=== PATIENT | male | born 1970 | race Caucasian/White ===

== ENCOUNTER 2017-03-25 16:36 | Emergency (ER) | payer SELFPAY ==
[2017-03-25 16:43] VITALS: BP 139/96; PULSE 95; RESP 18; TEMP 98.4; O2SAT 96
[2017-03-25] MEDS ORDERED: AMLO5 PO (17:23)
[2017-03-25] MEDS ORDERED: ORPHENADRINE INJ 60 MG/2 ML AMP IM ONE (17:30)
[2017-03-25] MEDS ORDERED: KETOROLAC TROMETHAMINE 60 MG/2 ML (IM) VIAL IM ONE (17:30)
--- NOTE | 2017-03-25 18:08 | PD ---
HPI Chief Complaint: Back/ Neck Pain or Injury Time Seen by Provider: 17:50 Travel History International Travel<30 days: No Contact w/Intl Traveler<30days: No Traveled to known affect area: No History of Present Illness HPI 46-year-old male here with low back pain. Injury occurred when patient bent over in the shower and slightly slipped causing him to twist the back. He had immediate pain in the low lumbar region making it difficult to even stand up. The pain has progressed to the point where he reports he is unable to stand back pain. Patient is visiting from [place]. He denies fever, incontinence, saddle anesthesia, paresthesia or weakness of the extremities. PFSH Past Medical History Narrative Medical Significant for hypertension Cardiovascular Problems: Yes (HTN) Diminished Hearing: No Hypertension: Yes Sleep Apnea: Yes Tetanus Vaccination: < 5 Years Influenza Vaccination: Yes Social History Alcohol Use: Yes (daily) Tobacco Use: Yes (occassional cigar) Substance Use: No Allergies-Medications (Allergen,Severity, Reaction): Coded Allergies: Sulfa (Sulfonamide Antibiotics) (Verified Allergy, Unknown, 03/25/17) Reported Meds & Prescriptions Reported Meds & Active Scripts Active Ultram (Tramadol HCl) 50 Mg Tab 50 Mg PO Q6H PRN Robaxin (Methocarbamol) 500 Mg Tab 500 Mg PO TID Ibuprofen 800 Mg Tab 800 Mg PO Q6HR PRN Reported Norvasc (Amlodipine Besylate) 5 Mg Tab 5 Mg PO DAILY Review of Systems Except as stated in HPI: all other systems reviewed are Neg General / Constitutional: No: Fever Cardiovascular: No: Chest Pain or Discomfort Gastrointestinal: No: Abdominal Pain Neurologic: No: Weakness Physical Exam Narrative GENERAL: Alert male in no distress. Patient grimaces upon moving. SKIN: Warm and dry. HEAD: Normocephalic. EYES: No scleral icterus. No injection or drainage. NECK: Supple, trachea midline. No JVD or lymphadenopathy. CARDIOVASCULAR: Regular rate and rhythm without murmurs, gallops, or rubs. RESPIRATORY: Breath sounds equal bilaterally. No accessory muscle use. GASTROINTESTINAL: Abdomen soft, non-tender, nondistended. MUSCULOSKELETAL: No cyanosis, or edema. BACK: Tenderness to the lumbar spine and lumbar paraspinous musculature. Without obvious deformity. No CVA tenderness. NEUROLOGICAL: Motor and sensory grossly within normal limits. Five out of 5 muscle strength in all muscle groups. Dorsiflex and plantarflex intact. Normal sensation. Normal speech. Data Data Last Documented VS Vital Signs Date Time Temp Pulse Resp B/P (MAP) Pulse Ox O2 Delivery O2 Flow Rate FiO2 03/25/17 19:38 16 03/25/17 16:43 98.4 95 139/96 (110) 96 Orders Orders Ketorolac Inj (Toradol Inj) (03/25/17 17:30) Orphenadrine Inj (Norflex Inj) (03/25/17 17:30) Ct Lumb Spine W/O Contrast (03/25/17 ) Morphine Inj (Morphine Inj) (03/25/17 18:45) Ondansetron Odt (Zofran Odt) (03/25/17 18:45) Morphine Inj (Morphine Inj) (03/25/17 18:45) Ed Discharge Order (03/25/17 20:47) MDM Medical Decision Making Medical Screen Exam Complete: Yes Emergency Medical Condition: Yes Differential Diagnosis Lumbar strain, lumbar spine fracture, herniated disc Narrative Course 46-year-old male here with low lumbar pain after bending over in the shower this evening. He has a normal neurologic exam. CAT scan of lumbar spine ordered. He was given Toradol IM, Norflex IM. On reexam he reports no symptom improvement after medications. He was given one shot of morphine [address] scan show no compression fracture CT lumbar spine: No compression fracture CT results were discussed with patient. He is reporting symptom improvement. He was ambulated by nursing staff. He will be discharged home with NSAIDs, muscle relaxers, pain medication. Diagnosis Primary Impression: Low back pain Qualified Codes: M54.5 - Low back pain Referrals: Primary Care Physician Additional Instructions: Follow-up with her doctor Avoid heavy lifting or strenuous activity. Scripts Tramadol (Ultram) 50 Mg Tab 50 MG PO Q6H Y for PAIN, #10 TAB 0 Refills Prov: Celena Cornejo MD 03/25/17 Methocarbamol (Robaxin) 500 Mg Tab 500 MG PO TID for Muscle Spasm, #12 TAB 0 Refills Prov: Peggy Nino 03/25/17 Ibuprofen (Ibuprofen) 800 Mg Tab 800 MG PO Q6HR Y for PAIN, #40 TAB 0 Refills Prov: Peggy Nino 03/25/17 Disposition: 01 DISCHARGE HOME Condition: Stable Peggy Nino Mar 25, 2017 18:08
[2017-03-25] MEDS ORDERED: MORPHINE SULFATE 4 MG/ML INJ IV ONE (18:45)
[2017-03-25] MEDS ORDERED: MORPHINE SULFATE 4 MG/ML INJ IM ONE (18:45)
[2017-03-25] MEDS ORDERED: ONDANSETRON ODT 4 MG TAB PO ONE (18:45)
--- NOTE | 2017-03-25 19:28 | RADRPT ---
EXAM DATE/TIME: 03/25/2017 18:39 [facility] COMPARISON: No previous studies available for comparison. INDICATIONS : Lower back pain. Unable to get out of bed. Old injury in 2005. RADIATION DOSE: 32.50 CTDIvol (mGy) MEDICAL HISTORY : Hypertension. SURGICAL HISTORY : Bilateral hip repair. ENCOUNTER: Initial ACUITY: 1 day PAIN SCALE: 10/10 LOCATION: spine TECHNIQUE: Volumetric scanning of the lumbar spine was performed. Multiplanar reconstructions in the sagittal, coronal and oblique axial planes were performed. Using automated exposure control and adjustment of the mA and/or kV according to patient size, radiation dose was kept as low as reasonably achievable t o obtain optimal diagnostic quality images. DICOM format image data is available electronically for review and comparison. FINDINGS: VERTEBRAE: There is a mild compression deformity involving T12 which is likely chronic. Clinical correlation is recommended. ALIGNMENT: No evidence of subluxation. Mild scoliosis is noted. T12-L1: The thecal sac has a normal diameter. No evidence of disc bulge or protrusion. The neural foramina are patent bilaterally. L1-L2: The thecal sac has a normal diameter. No evidence of disc bulge or protrusion. The neural foramina are patent bilaterally. L2-L3: The thecal sac has a normal diameter. No evidence of disc bulge or protrusion. The neural foramina are patent bilaterally. L3-L4: The thecal sac has a normal diameter. There is a minimal diffuse disc bulge. No focal disc herniation is noted. The neural foramina are patent bilaterally. L4-L5: The thecal sac has a normal diameter. There is a minimal diffuse disc bulge. No focal disc herniation is noted. The neural foramina are patent bilaterally. L5-S1: The thecal sac has a normal diameter. There is a mild diffuse asymmetric disc osteophyte complex to t he left which results in no spinal stenosis or nerve impingement. Minimal bilateral foraminal narrowi ng is noted. CONCLUSION: 1. No acute compression fracture, spondylolisthesis or spondylolysis. 2. Probable chronic mild compression deformity involving T12. 3. Mild diffuse asymmetric disc osteophyte complex to the left at L5-S1 resulting in minimal bilatera l foraminal narrowing. 4. Minimal diffuse disc bulges at L3-4 and L4-5. 5. Mild scoliosis. Kevin Reina MD on March 25, 2017 at 19:21 Board Certified Radiologist. This report was verified electronically.
[2017-03-25 19:38] VITALS: RESP 16
[2017-03-25] MEDS ORDERED: ROBA500T PO (20:15)
[2017-03-25] MEDS ORDERED: IBUP1TAB7 PO (20:15)
[2017-03-25] MEDS ORDERED: TRAM50 PO (20:21)
== END 2017-03-25 20:49 | disposition home or self-care (01) ==
LOC: PHEFT 16:36
DX: M54.5 Low back pain (principal); I10 Essential (primary) hypertension; Z72.0 Tobacco use
CPT/HCPCS: 72131; 96372; 99285; J1885; J2270; J2360